=== PATIENT | female | born 1950 | race Caucasian/White ===

== ENCOUNTER → 2018-12-30 | Outpatient (CLI) | payer OTHER ==
--- NOTE | 2018-12-30 10:30 | XR ---
Lumbosacral spine HISTORY: Low back pain 5 views of lumbosacral spine There is a levoscoliosis centered at L2. Bone mineralization is reduced which could limit sensitivity . No evident spondylolysis. There is multilevel spondylosis. Minimal anterolisthesis grade 1 L3-4, L4 -5. Loss of disc height at the intervertebral levels shows associated vacuum phenomenon at L2-3, poss ibly additional levels. Sclerosis present in the posterior elements of the lower lumbar spine compati ble with facet arthropathy. IMPRESSION: Degenerative disc disease, scoliosis, facet arthropathy and osteopenia. No acute fracture or subluxation.
== END | disposition home or self-care (01) ==
LOC: RADXRYALE 08:39
PROVIDERS: ATTEND Physician Assistant Medical
DX: M51.36 Other intervertebral disc degeneration, lumbar region (principal); M46.96 Unspecified inflammatory spondylopathy, lumbar region; M41.86 Other forms of scoliosis, lumbar region; M85.88 Other specified disorders of bone density and structure, other site
CPT/HCPCS: 72110

== ENCOUNTER → 2019-08-18 | Outpatient (CLI) | payer OTHER ==
--- NOTE | 2019-08-18 12:18 | XR ---
EXAMINATION TYPE: XR ribs RT w pa chest xray DATE OF EXAM: 08/18/2019 COMPARISON: NONE TECHNIQUE: PA view of the chest and 4 views of the right ribs are submitted. HISTORY: Pain FINDINGS: The lungs are clear and there is no pneumothorax, pleural effusion, or focal pneumonia. Scoliotic c urvature with degenerative change of the spine. Arthropathy of the shoulders. No overt failure. There is slight deformity involving the anterior lateral right seventh, eighth and ninth ribs. IMPRESSION: 1. Correlate for hairline minimally displaced fractures anterolateral right fourth, seventh, eighth a nd ninth ribs..
== END | disposition home or self-care (01) ==
LOC: RADXRYALE 11:16
PROVIDERS: ATTEND Physician Assistant Medical
DX: R07.82 Intercostal pain (principal)

== ENCOUNTER → 2021-02-02 | Outpatient (CLI) | payer MEDICARE, OTHER ==
--- NOTE | 2021-02-02 10:47 | XR ---
Lumbosacral spine HISTORY: Radiculopathy, low back pain 5 views of lumbosacral spine correlated prior exam 12/30/2018 Bone mineralization is reduced. Sclerosis is present in the posterior elements of the lower lumbar sp ine. There is multilevel spondylosis. Loss of disc height is present at intervertebral levels, vacuum phenomenon present at L2-3, L5-S1. Lumbar vertebral bodies show preserved height. There is a spinal curvature. No evident spondylolysis. IMPRESSION: Findings are similar to prior exam. Degenerative disc disease, facet arthropathy, osteope darrin, scoliosis.
== END | disposition home or self-care (01) ==
LOC: RADXRYALE 09:56
PROVIDERS: ATTEND Physician Assistant
DX: M51.16 Intervertebral disc disorders with radiculopathy, lumbar region (principal); M85.80 Other specified disorders of bone density and structure, unspecified site
CPT/HCPCS: 72110

== ENCOUNTER → 2021-10-09 | Outpatient (CLI) | payer MEDICARE, OTHER ==
--- NOTE | 2021-10-09 09:58 | XR ---
EXAMINATION TYPE: XR ribs bilat w pa chest xray DATE OF EXAM: 10/09/2021 COMPARISON: 08/18/2019 HISTORY: Chronic pain TECHNIQUE: 9 views submitted FINDINGS: Diffuse osteopenia. Curvature of the spine. Heart size normal. No consolidation or pneumoth orax. Visualized rib cage is grossly intact. IMPRESSION: No acute displaced rib fracture
== END | disposition home or self-care (01) ==
LOC: RADXRYALE 08:58
PROVIDERS: ATTEND Family Medicine
DX: R07.82 Intercostal pain (principal); W19.XXXA Unspecified fall, initial encounter
CPT/HCPCS: 71111

== ENCOUNTER → 2022-03-21 | Outpatient (CLI) | payer MEDICARE, OTHER ==
--- NOTE | 2022-03-21 13:15 | XR ---
Lumbar spine HISTORY: Low back pain 3 views the lumbar spine submitted and correlated prior exam 02/02/2021 Mineralization is reduced. There is multilevel spondylosis. There is a levoscoliosis centered at L2 a s on prior. Loss of disc height is present at intervertebral levels, vacuum phenomenon present L5-S1, L2-3. Anterolisthesis grade 1 L3-4, L4-5 again seen and likely degenerative. Sclerosis is present in the posterior elements. IMPRESSION: Degenerative disc disease, facet arthropathy, osteopenia and spinal curvature
== END | disposition home or self-care (01) ==
LOC: RADXRYALE 09:44
PROVIDERS: ATTEND Physician Assistant
DX: M54.50 Low back pain, unspecified (principal)
CPT/HCPCS: 72100

== ENCOUNTER → 2024-09-14 | Outpatient (CLI) | payer MEDICARE, OTHER ==
--- NOTE | 2024-09-14 09:39 | XR ---
EXAMINATION TYPE: XR ribs LT w pa chest xray DATE OF EXAM: 09/14/2024 COMPARISON: NONE HISTORY: Pain TECHNIQUE: 10/09/2021 FINDINGS: Diffuse osteopenia. Curvature of the spine with multilevel hypertrophic and degenerative ch anges.. Heart size normal. No consolidation or pneumothorax. Visualized rib cage is grossly intact. T here is a deformity of the anterolateral left 6 rib with some callus formation suggestive of healing fracture Lungs are clear. Heart size is normal. Generalized osteopenia. Arthropathy of the shoulders. No overt failure. No pneumothorax. IMPRESSION: 1. There is a deformity of the anterior lateral left 6 rib with some callus formation correlate for a healing rib fracture. 2. No acute intrathoracic process. [facility], , 09/14/2024 9:37 AM
== END | disposition home or self-care (01) ==
LOC: RADXRYALE 08:37
PROVIDERS: ATTEND Physician Assistant
DX: R07.9 Chest pain, unspecified (principal); M95.4 Acquired deformity of chest and rib